=== PATIENT | female | born 1980 | race Caucasian/White ===

== ENCOUNTER 2016-06-08 07:07 | Emergency (ER) ==
[2016-06-08 07:25] LABS: URINE SOURCE CLEAN CATCH
[2016-06-08] MEDS ORDERED: ZOFRAN ODT PO ONE (07:34)
[2016-06-08] MEDS ORDERED: TORADOL IM ONE (07:35)
[2016-06-08 07:39] LABS: BILIRUBIN URINE NEGATIVE (NEGATIVE); BLOOD URINE 4+ (NEGATIVE); CLARITY CLEAR (CLEAR); COLOR YELLOW; GLUCOSE URINE NEGATIVE (NEGATIVE); LEUKOCYTES URINE TRACE (NEGATIVE); NITRITE URINE NEGATIVE (NEGATIVE); PROTEIN URINE 1+(30 mg/dL) mg/dL (NEGATIVE); SP GRAVITY URINE 1.025; UROBILINOGEN URINE NORMAL
[2016-06-08 07:41] LABS: URINE CULTURE PL NEEDED? YES; URINE EPITHELIAL CELLS <10 /HPF (<10); URINE WBC <10 /HPF (<10)
--- NOTE | 2016-06-08 07:46 | PROVIDER DOCUMENTATION ---
HPI-Female /OB/Breast - General Chief Complaint: Flank Pain Stated Complaint: FLANK PAIN Time Seen by Provider: 06/08/16 07:34 Source: reports: patient Allergies/Adverse Reactions: Patient Allergies Allergy/AdvReac Type Severity Reaction Status Date / Time No Known Allergies Allergy Verified 06/08/16 07:16 Home Medications: Home Medication List Medication Instructions Recorded Confirmed Last Taken Type Fluoxetine [Prozac] 10 mg 06/08/16 Unknown History Hydrocodone/APAP 5 mg/325 mg 1 - 2 tab PO Q6H PRN PRN #18 tablet 06/08/16 Unknown Rx [[place]-5] Metoprolol [Lopressor] 25 mg 06/08/16 Unknown History Promethazine [Phenergan] 1 - 2 tab PO Q6H PRN PRN #18 tablet 06/08/16 Unknown Rx - History of Present Illness-Female /OB Nature of Presenting Problem: awakened with pain in left flank and left llq w/n and v on reg cycle Does patient report she is ?: No Location of complaint: reports: LLQ, left flank Radiation: reports: LLQ Quality of Pain: reports: cramping Severity in ED: reports: moderate Onset/Duration: reports: 1-3 hours ago Timing: reports: still present Context/Activities at Onset: reports: sleep Vaginal Symptoms: reports: passing clots/tissue Vaginal Bleeding Amount: Medium/Moderate Modifying Factors: improves with: nothing Associated Symptoms: reports: nausea, vomiting Similar Symptoms Previously?: No Recently seen or treated by another doctor?: No Review of Systems - Adult - REVIEW OF SYSTEMS - ADULT Constitutional: reports: chills. denies: fever Eyes: reports: no symptoms reported Ears, Nose, Mouth & Throat: reports: no symptoms reported Cardiovascular: reports: no symptoms reported Respiratory: reports: no symptoms reported Gastrointestinal: reports: abdominal pain, nausea, vomiting Genitourinary: reports: no symptoms reported Musculoskeletal: reports: no symptoms reported Integumentary: reports: no symptoms reported Neurological: reports: no symptoms reported Endocrine: reports: no symptoms reported Hematologic/Lymphatic: reports: no symptoms reported Allergic/Immunologic: reports: no symptoms reported Past History - Adult - PAST MEDICAL HISTORY-ADULT Review of Records: reports: Nursing Assessment Review, Medications Reviewed, Social history reviewed & non-contributory. Major Childhood Illnesses: reports: denies history Cardiovascular: reports: HTN Respiratory: reports: denies history Gastrointestinal: reports: denies history Genitourinary: denies: kidney disease, kidney stones, polycystic kidney disease Musculoskeletal: reports: denies history Neurological: reports: denies history Endocrine/Immune: reports: denies history - PRIOR SURGERIES/PROCEDURES Surgical/Procedure History: reports: - SOCIAL HISTORY Smoking: non-smoker Physical Exam-General - PHYSICAL EXAM-ADULT Initial Vital Signs Reviewed: Yes - CONSTITUTIONAL General Appearance: moderate distress - EYES Eyes: PERRL/EOMI, pink conjunctivae - HEAD, EARS, NOSE, MOUTH & THROAT HENMT: normocephalic/atraumatic - NECK Neck: supple - RESPIRATORY Respiratory: no respiratory distress - CARDIOVASCULAR Cardiovascular: regular rate, rhythm - GASTROINTESTINAL (ABDOMEN) Abdominal Exam: soft - LYMPHATIC Lymphatic: no adenopathy - MUSCULOSKELETAL Back Exam: no CVA tenderness Extremity: normal range of motion - SKIN Integumentary: normal color, normal turgor - NEUROLOGIC Neurologic: grossly normal - PSYCHIATRIC Psych/Mental Status: oriented x 3 Departure - Departure Time of Disposition Order: 10:12 DIAGNOSIS: Ovarian cyst Qualifiers: Laterality: unspecified laterality Qualified Code(s): N83.209 - Unspecified ovarian cyst, unspecified side Disposition: HOME 01 Certified Medical Emergency: Emergent Condition: Stable Additional Instructions: ED Follow Up Instructions: You have been treated by a care provider in the Emergency Department. These instructions are being provided to you so you can have an understanding of how to care for yourself upon discharge. Upon discharge from the Emergency Department, you are responsible for making arrangements for follow-up care by a physician of your choice. Take all prescribed medications as directed. Return to the Emergency Department immediately for any new or worsening symptoms. You may call the Physician Referral phone number at [phone] to obtain a list of Physicians who are taking new patients. Prescriptions: Hydrocodone/APAP 5 mg/325 mg [[place]-5] 1 - 2 tab PO Q6H PRN PRN #18 tablet PRN Reason: Pain Promethazine [Phenergan] 1 - 2 tab PO Q6H PRN PRN #18 tablet PRN Reason: Vomiting
[2016-06-08] MEDS ORDERED: DEMEROL IV ONE (08:37)
[2016-06-08] MEDS ORDERED: PHENERGAN IM ONE (08:37)
--- NOTE | 2016-06-08 08:42 | Diag Imaging Result Document ---
PROCEDURE NAME: RENAL STONE SEARCH - 06/08/2016 CT ABDOMEN AND PELVIS WITHOUT ORAL OR INTRAVENOUS CONTRAST: FINDINGS: There is an 11 mm nodule in the right lower lobe. Normal spleen and adrenal glands. No inflammation about the pancreas or gallbladder. No focal hepatic abnormality identified on this noncontrasted exam except for a tiny cyst anteriorly in the right lobe. No perinephric inflammation. No renal stones. No hydronephrosis. Normal aorta. No bowel obstruction. Normal appendix. No abscess. The urinary bladder is only mildly distended. There is a 7.0 x 8.1 x 6.8 cm hypodense lesion adjacent to the uterus and urinary bladder in the midline of the pelvis. This may represent a large ovarian cyst. The uterus is otherwise normal. No free fluid in the pelvis. IMPRESSION: 1. No renal stones or hydronephrosis. 2. No bowel obstruction. 3. Large hypodense lesion within the pelvis believed to be a complex ovarian cyst measuring 8.1cm. Ultrasound may be beneficial. 4. 11 mm right lower lobe pulmonary nodule. A preliminary report was given at 8:21 a.m. MTDD
[2016-06-08 09:35] LABS: MANUAL DIFF NEEDED? NO
[2016-06-08 09:38] LABS: BASO% 0.2 % (0.0-0.8); EOS# 0.01 X1000 (0.0-0.7); EOS% 0.1 % (0.0-10.0); HEMATOCRIT 38.1 % (37.0-47.0); HEMOGLOBIN 13.5 g/dL (12.0-16.0); IMM GRAN# 0.02 X1000 (0.0-0.04); IMM GRAN% 0.2 % (0.0-0.5); LYMPH# 0.71 X1000 (1.2-3.4); LYMPH% 6.7 % (20.5-51.1); MCH 34.1 PG (27-31); MCHC 35.4 g/dL (33-37); MCV 96.2 FL (81-99); MONO# 0.52 X1000 (0.11-0.59); MONO% 4.9 % (1.7-9.3); MPV 10.2 FL (7.4-10.4); NEUT% 87.9 % (42.2-75.2); PLT 211 X1000 (130-400); RBC 3.96 XMIL (4.2-5.4)
[2016-06-08 10:15] VITALS: BP 132/84
[2016-06-08 10:15] LABS: AGAP 12; ALBUMIN 4.3 g/dL (3.5-5.0); ALKALINE PHOSPHATASE 67 U/L (32-104); BUN 10 mg/dL (8-22); CALCIUM 8.7 mg/dL (8.8-10.2); CHLORIDE 107 mmol/L (98-107); COSMO 282; GOT 21 U/L (10-30); GPT 15 U/L (10-36); POTASSIUM 3.9 mmol/L (3.5-5.1); SODIUM 141 mmol/L (136-145); TCO2 22 mmol/L (25-35); TOTAL PROTEIN 6.7 g/dL (6.3-8.3)
== END 2016-06-08 10:25 | disposition home or self-care (01) ==
LOC: P.ED 07:07
DX: N83.209 Unspecified ovarian cyst, unspecified side (principal); R91.1 Solitary pulmonary nodule; R10.9 Unspecified abdominal pain; R10.32 Left lower quadrant pain; R11.2 Nausea with vomiting, unspecified; I10 Essential (primary) hypertension
CPT/HCPCS: 74176; 80053; 81001; 81025; 85025; 87088; 96372; J1885; J2175; J2550